=== PATIENT | male | born 2000 | race Caucasian/White ===

== ENCOUNTER 2024-09-27 03:30 | Observation (INO) ==
--- NOTE | 2024-09-27 03:48 | Emergency Department Note ---
History of Present Illness General Chief complaint: Abdominal Pain Stated complaint: ABD PAIN,FEVER,VOMITING,DIARRHEA,CONSTIPATION Time Seen by Provider: 09/27/24 03:35 History of Present Illness Maximum Pain Intensity: 8 This 24-year-old male presents ER with father for evaluation of nausea, vomiting, diarrhea with subjective fever and chills and abdominal pain for the past day. No bad food exposure. No recent travel. There is a family history of diverticulitis. Patient denies chest pain, dyspnea, blood or black in the stool or any other medical complaints. He states he works from home. Patient does a lot of physical fitness and most likely his CPK is related to this. Home Medications Medication Instructions Recorded Confirmed Type albuterol sulfate 90 mcg/actuation 2 inh inhalation Q4H PRN shortness 08/15/20 08/15/20 History aerosol inhaler of breath or wheezing cetirizine 10 mg tablet 10 mg PO DAILY 08/15/20 08/15/20 History fluticasone propionate 44 1 puff inhalation BID 08/15/20 08/15/20 History mcg/actuation HFA aerosol inhaler Allergies Allergy/AdvReac Type Severity Reaction Status Date / Time Penicillins Allergy Mild Unverified 09/14/09 03:17 Sulfa (Sulfonamide Allergy Mild Unverified 09/14/09 03:17 Antibiotics) [id number] Allergy Unknown Uncoded 01/20/03 07:45 Past Med/Surg History Problem List (Updated 09/27/24 @ 05:21 by Cherry Root PA-C) Acute appendicitis (Acute) Social History Smoking Status: Never smoker Feels Safe at Home: Yes Review of Systems A total of 10 systems reviewed and were otherwise negative Physical Exam Vital Signs Vital Signs - 24 hr 09/27/24 03:32 09/27/24 03:45 09/27/24 03:50 Pulse Rate 55 L 54 L Pulse Rate from SpO2 Sensor Respiratory Rate 20 16 Respiratory Effort / Characteristics Non-Labored Spontaneous Non-Labored Respiratory Depth Normal Normal Respiratory Pattern Regular Blood Pressure 157/93 H 150/74 H Blood Pressure Mean 114 88 Pulse Oximetry 98 98 Oxygen Delivery Method Room Air Sepsis Recent Fever Within 48 Hours Yes Sepsis New/Unexplained Change in Mental Status No Sepsis Action Taken by Nursing No Action Required 09/27/24 03:53 09/27/24 03:53 09/27/24 04:22 Pulse Rate 60 Pulse Rate from SpO2 Sensor Respiratory Rate Respiratory Effort / Characteristics Respiratory Depth Respiratory Pattern Blood Pressure 137/67 Blood Pressure Mean 75 Pulse Oximetry 99 Oxygen Delivery Method Room Air Sepsis Recent Fever Within 48 Hours Sepsis New/Unexplained Change in Mental Status Sepsis Action Taken by Nursing 09/27/24 04:27 09/27/24 04:45 09/27/24 04:51 Pulse Rate 43 L 49 L 54 L Pulse Rate from SpO2 Sensor 53 L 54 L 61 Respiratory Rate 21 15 12 Respiratory Effort / Characteristics Respiratory Depth Respiratory Pattern Blood Pressure Blood Pressure Mean Pulse Oximetry 100 100 100 Oxygen Delivery Method Sepsis Recent Fever Within 48 Hours Sepsis New/Unexplained Change in Mental Status Sepsis Action Taken by Nursing 09/27/24 04:57 09/27/24 05:33 09/27/24 05:36 Pulse Rate 58 L 79 Pulse Rate from SpO2 Sensor 59 L 81 Respiratory Rate 18 17 Respiratory Effort / Characteristics Respiratory Depth Respiratory Pattern Blood Pressure 155/103 H Blood Pressure Mean 112 Pulse Oximetry 90 100 Oxygen Delivery Method Sepsis Recent Fever Within 48 Hours Sepsis New/Unexplained Change in Mental Status Sepsis Action Taken by Nursing VITALS: Vitals are noted on the nurse's note and reviewed by myself. Vital signs stable. GENERAL: Pleasant male, in no acute distress, nondiaphoretic, well-developed well-nourished. SKIN: Capillary reflex less than 2 seconds. HEENT: Normocephalic. PERRLA. EOMI. Nares patent. Mucous membranes moist. Neck is supple without nuchal rigidity. HEART: Regular rate and rhythm LUNGS: Clear to auscultation bilaterally without wheezes, rales or rhonchi. No retractions or accessory muscle use. ABDOMEN: Positive bowel sounds x 4. Normal tympanic percussion. Soft, diffuse tenderness, without masses or organomegaly. Ling sign negative. No guarding or rebound tenderness. no CVA tenderness MUSCULOSKELETAL: No gross musculoskeletal defects. NEURO: Patient was alert and oriented to person place and time. No focal neurological deficits. Course Administered Medications Cefoxitin Sodium (Mefoxin) 2,000 mg in 60 mls @ 100 mls/hr IV NOW STA Stop: 09/27/24 05:55 Last Admin: 09/27/24 05:32 Dose: 100 mls/hr Documented By: FREDERIC Discontinued Medications Dicyclomine HCl (Dicyclomine Hcl 10 Mg/Ml 2 Ml Amp/Vial) 20 mg IM NOW ONE Stop: 09/27/24 03:45 Last Admin: 09/27/24 03:54 Dose: 20 mg Documented By: FREDERIC Sodium Chloride (Nss) 1,000 mls @ 999 mls/hr IV .Q1H1M ONE Stop: 09/27/24 04:44 Last Infusion: 09/27/24 04:54 Dose: Infused Documented By: Admin: 09/27/24 03:50 Dose: 999 mls/hr Documented By: FREDERIC Famotidine (Pepcid 20mg Iv Push) 20 mg in 5 mls @ 2.5 mls/min IV NOW STA Stop: 09/27/24 03:45 Last Admin: 09/27/24 03:54 Dose: 2.5 mls/min Documented By: FREDERIC Sodium Chloride (Nss) 1,000 mls @ 999 mls/hr IV .Q1H1M ONE Stop: 09/27/24 05:21 Last Admin: 09/27/24 04:25 Dose: 999 mls/hr Documented By: FREDERIC Acetaminophen (Ofirmev) 1,000 mg in 100 mls @ 400 mls/hr IV NOW STA Stop: 09/27/24 04:41 Last Infusion: 09/27/24 04:53 Dose: Infused Documented By: Admin: 09/27/24 04:30 Dose: 400 mls/hr Documented By: FREDERIC Ioversol (Optiray 320 100ml) 100 ml IV ONCE ONE Stop: 09/27/24 04:21 Last Admin: 09/27/24 04:20 Dose: 93 ml Documented By: JACQUELINE Morphine Sulfate (Morphine Sulfate 4 Mg/Ml 1 Ml Carp\Vial) 4 mg IV NOW STA Stop: 09/27/24 05:04 Last Admin: 09/27/24 05:07 Dose: 4 mg Documented By: FREDERIC Ondansetron HCl (Ondansetron Inj 2 Mg/Ml 2 Ml Vial) 4 mg IV NOW STA Stop: 09/27/24 03:45 Last Admin: 09/27/24 03:54 Dose: 4 mg Documented By: FREDERIC Ondansetron HCl (Ondansetron Inj 2 Mg/Ml 2 Ml Vial) 4 mg IV NOW STA Stop: 09/27/24 05:04 Last Admin: 09/27/24 05:07 Dose: 4 mg Documented By: FREDERIC Medical Decision Making Medical Records Attestation: I reviewed the patient's medical records. Home Medications Current Medication List: was personally reviewed by me Laboratory Data Attestation: I reviewed the patient's lab results. 09/27/24 03:43 09/27/24 03:43 Lab Results 09/27/24 09/27/24 09/27/24 Range/Units 03:43 03:43 05:04 WBC 11.02 H (4.8-10.8) K/ul RBC 5.30 (4.70-6.10) M/uL Hgb 15.7 (14.0-18.0) g/dl Hct 45.1 (42.0-52.0) % MCV 85.1 (80.0-100.0) fL MCH 29.6 (25.0-34.0) pg MCHC 34.8 (32.0-36.0) g/dL RDW Std Deviation 35.2 L (36.4-46.3) fL RDW Coeff of Camilo 11.5 (11.5-14.5) % Plt Count 255 (130-400) K/uL MPV 8.8 L (9.4-12.4) fL Immature Gran % (Auto) 0.3 % Neut % (Auto) 61.5 % Lymph % (Auto) 29.0 % [place] % (Auto) 7.2 % Eos % (Auto) 1.5 % Baso % (Auto) 0.5 % Neut # (Auto) 6.77 H (1.40-6.50) K/uL Lymph # (Auto) 3.20 (1.20-3.40) K/uL [place] # (Auto) 0.79 H (0.11-0.59) K/uL Eos # (Auto) 0.17 (0.00-0.50) K/uL Baso # (Auto) 0.06 (0.00-0.20) K/uL Immature Gran # (Auto) 0.03 (0.01-0.20) K/uL Sodium 136 (136-145) mmol/L Potassium 3.8 (3.5-5.1) mmol/L Chloride 101 (98-107) mmol/L Carbon Dioxide 25 (21-32) mmol/L Anion Gap 10 (3-11) BUN 29 H (6-23) mg/dl Creatinine 1.18 (0.6-1.4) mg/dl Est Cr Clr Drug Dosing 105.1 ml/min eGFR 88.37 BUN/Creatinine Ratio 24.6 H (10-20) Glucose 107 H (70-99(Fasting)) mg/dl Calcium 9.9 (8.6-10.3) mg/dl Total Bilirubin 0.5 (0.2-1.0) mg/dl AST 56 H (13-39) U/L ALT 41 (7-52) U/L Alkaline Phosphatase 79 (34-104) U/L Total Creatine Kinase 929 H Cancelled 793 H (30-223) U/L Total Protein 7.7 (6.0-8.3) gm/dl Albumin 4.7 (3.4-5.0) gm/dl Globulin 3.0 (2.5-4.0) gm/dl Albumin/Globulin Ratio 1.6 (0.9-2) Lipase 54 (11-82) U/L Adenovirus (PCR) Not Detected (NotDetected) B. pertussis DNA (PCR) Not Detected (NotDetected) B.parapertussis DNA PCR Not Detected (NotDetected) C. pneumoniae DNA (PCR) Not Detected (NotDetected) Coronavirus OC43 (PCR) Not Detected (NotDetected) Coronavirus HKU1 (PCR) Not Detected (NotDetected) Coronavirus 229E (PCR) Not Detected (NotDetected) SARS-CoV-2 (PCR) Not Detected (NotDetected) Coronavirus NL63 (PCR) Not Detected (NotDetected) Human Metapneumovir PCR Not Detected (NotDetected) Influenza Type A (PCR) Not Detected (NotDetected) Influenza Type B (PCR) Not Detected (NotDetected) M. pneumoniae (PCR) Not Detected (NotDetected) Parainfluenza 1 (PCR) Not Detected (NotDetected) Parainfluenza 2 (PCR) Not Detected (NotDetected) Parainfluenza 3 (PCR) Not Detected (NotDetected) Parainfluenza 4 (PCR) Not Detected (NotDetected) RSV (PCR) Not Detected (NotDetected) Entero/Rhino (PCR) Not Detected (NotDetected) Imaging Data Attestation: I personally reviewed and interpreted this imaging study as follows: Radiologist's Impression: Abdomen/Pelvis CT 09/27/24 03:44 EXAM: CT abd pelvis IV con only CLINICAL HISTORY: severe abd pain TECHNIQUE: Contrast-enhanced CT of the abdomen and pelvis was performed (93 ML OPTIRAY 320), with the following protocol: axial images with, and reconstructed coronal and sagittal images. 93 ML OPTIRAY 320 Intravenous contrast was administered. One of the following dose reduction techniques was utilized for this exam: Automated exposure control, adjustment of the mA and/or kV according to patient size, and use of iterative reconstruction. COMPARISON: None. FINDINGS: Abdomen: Liver: Enlarged in size (LS=21cm). No focal lesions, cysts, or masses were identified. Hepatic vasculature and biliary ducts are unremarkable. Gallbladder and Biliary System: The gallbladder is normal in size and shape. No wall thickening, pericholecystic fluid, or gallstones were identified. The common bile duct is normal in caliber without dilation. Pancreas: Pancreatic head, body, and tail are visualized and appear normal in size and density. No pancreatic masses or calcifications were noted. The pancreatic duct is not dilated. Spleen: Normal in size, shape, and density. No splenic lesions or masses were identified. Appendix: The appendix is distended (14mm in TS) with 4mm appendicolith, wall thickening, surrounding fat stranding seen normal in size without grace appendiceal fat stranding, and without an appendicolith. No evidence of appendiceal abscess or perforation. Kidneys and Adrenal Glands: Both kidneys are normal in size, shape, and position. Cortical thickness is within normal limits. No renal calculi or hydronephrosis. Adrenal glands are unremarkable with no evidence of masses or hyperplasia. Pelvis: Urinary Bladder: Normal in contour and wall thickness. No intraluminal lesions identified. Prostate: Normal in size and contour. No focal lesions or masses identified. Seminal Vesicles: Normal in size and appearance. No abnormalities noted. Rectum and Sigmoid Colon: Normal wall thickness and no evidence of mass. Peritoneal and Retroperitoneal Structures: No free fluid or abnormal fluid collections were identified within the abdomen or pelvis. No lymphadenopathy was noted. Bowel: The visualized bowel loops are normal in caliber and appearance. No evidence of bowel obstruction or wall thickening. Bones and Soft Tissues: Pelvic bones and soft tissues are unremarkable. No fractures or abnormal masses were identified. Cuts taken through base of the lung show right lower lobe mosaic attenuation and right lower lobe thickened reticulations IMPRESSION: 1. Imaging features suggesting acute appendicitis seen as a distended appendix, appendiceal wall thickening, appendicolith and surrounding fat stranding, advised for clinical correlation 2. Hepatomegaly 3. Cuts taken through base of the lung show right lower lobe mosaic attenuation (could be due to small airway disease) and right lower lobe thickened reticulations Electronically signed by Christine Taylor 09-27-2024 05:18 AM [facility] Narrative Prior records/ancillary studies reviewed. Triage Nursing notes reviewed. Additional history obtained from the family. The patient's history was concerning for nausea, vomiting, diarrhea, and abdominal pain. Differential diagnosis: Etiologies such as gastroenteritis, food borne illness, infections, appendicitis, diverticulitis, inflammatory bowel disease, obstruction, GI bleed, biliary pathology, as well as others were entertained. Physical examination findings: As above. Abdominal examination revealed tenderness. Vital signs reviewed and revealed stable. ER treatment provided: IV hydration 2 L NSS. Zofran, Bentyl, Pepcid were ordered Mefoxin for appendicitis Pain persisted and patient was given morphine and Zofran On reassessment the patient felt better. Patient was tolerating p.o. intake. Diagnostics interpretation by me: The labs Independently Interpreted by myself revealed mild leukocytosis, most likely marginalization from vomiting, glucose 107. CPK was elevated most likely from weightlifting and repeat was ordered and repeat was lower Imaging studies: Imaging was reviewed and read by radiology Consultation: A consultation was placed with surgery. The case was discussed and diagnostics were reviewed. The patient was evaluated in the ER for further treatment. This appears to be consistent with acute appendicitis. Patient was started on Mefoxin. He was placed NPO. Surgery was consulted. Patient is agreeable. Patient was admitted to the surgical service. By the evaluation outlined above emergent etiologies such as diverticulitis, obstruction, cardiac sources, mesenteric ischemia, aortic pathology, inflammatory bowel disease, renal colic, PUD, biliary pathology, UTI, as well as others were deemed relatively unlikely. The pt informed about the findings as listed above. All questions were answered and pleased with the treatment. The chart was completed utilizing [employer] voice recognition software. Grammatical errors, random word insertions, pronoun errors, and incomplete sentences are an occassional consequence of this system due to software limitations, ambient noise, and hardware issues. Any formal questions or concerns about the content, text, or information contained within the body of this dictation should be directly addressed to the physician assistant basketball coach for clarification. Impression & Plan Acute appendicitis Discharge Plan Visit Data Chief Complaint: Abdominal Pain Stated Complaint: ABD PAIN,FEVER,VOMITING,DIARRHEA,CONSTIPATION ED Provider: Tova Phelan ED Midlevel Provider: Cherry Root Discharge Problem: Acute appendicitis Patient Disposition: Being Evaluated by Surgeon Condition: Good Forms Stand Alone Forms: [facility] Prescriptions Prescriptions: No Action cetirizine 10 mg tablet 10 mg PO DAILY Flovent HFA 44 mcg/actuation HFA aerosol inhaler 1 puff inhalation BID albuterol sulfate 90 mcg/actuation HFA aerosol inhaler 2 inh inhalation Q4H PRN (Reason: shortness of breath or wheezing) Referrals Referrals: Vinicius Silva MD [Physician] - Discharge Problem: Acute appendicitis Qualifiers: Acute appendicitis type: with generalized peritonitis Appendicitis gangrene presence: unspecified whether gangrene present Appendicitis perforation presence: unspecified whether perforation present Appendicitis abscess presence: unspecified whether abscess present Qualified Code(s): K35.209 - Acute appendicitis with generalized peritonitis, without abscess, unspecified as to perforation
[2024-09-27] MEDS: SODIUM CHLORIDE 0.9% 1,000 ML IV ONE ×2 (03:50→04:25)
[2024-09-27 03:53] LABS: Basophils # (auto) 0.06 K/uL (0.00-0.20); Basophils % (auto) 0.5 %; Eosinophils # (auto) 0.17 K/uL (0.00-0.50); Eosinophils % (auto) 1.5 %; Hematocrit (blood only) 45.1 % (42.0-52.0); Hemoglobin 15.7 g/dl (14.0-18.0); Immature Granulocytes # (auto) 0.03 K/uL (0.01-0.20); Immature Granulocytes % (auto) 0.3 %; Mean Corpuscular Hemoglobin 29.6 pg (25.0-34.0); Mean Corpuscular Hgb Conc 34.8 g/dL (32.0-36.0); Mean Corpuscular Volume 85.1 fL (80.0-100.0); Mean Platelet Volume 8.8 fL (9.4-12.4); Monocytes # (auto) 0.79 K/uL (0.11-0.59); Monocytes % (auto) 7.2 %; Neutrophils # (auto) 6.77 K/uL (1.40-6.50); Neutrophils % (auto) 61.5 %; Platelet Count 255 K/uL (130-400); RDW Coefficient of Variation 11.5 % (11.5-14.5); RDW Standard Deviation 35.2 fL (36.4-46.3); White Blood Count 11.02 K/ul (4.8-10.8)
[2024-09-27] MEDS: ONDANSETRON INJ 2 MG/ML 2 ML VIAL IV STA ×2 (03:54→05:07)
[2024-09-27] MEDS: FAMOTIDINE 20MG IV PUSH 20 MG/5 ML SYR IV STA (03:54)
[2024-09-27] MEDS: DICYCLOMINE HCL 10 MG/ML 2 ML AMP/VIAL IM ONE (03:54)
[2024-09-27 04:19] LABS: Albumin Globulin Ratio 1.6 (0.9-2); Albumin Level 4.7 gm/dl (3.4-5.0); BUN Creatinine Ratio 24.6 (10-20); Bilirubin,Total 0.5 mg/dl (0.2-1.0); Calcium 9.9 mg/dl (8.6-10.3); Creatinine Clr Calc Pharmacy 105.1 ml/min; Potassium 3.8 mmol/L (3.5-5.1); Total Protein 7.7 gm/dl (6.0-8.3)
[2024-09-27] MEDS: OPTIRAY 320 100ml IV ONE (04:20)
[2024-09-27] MEDS: ACETAMINOPHEN 1,000 MG/100 ML VIAL IV STA (04:30)
[2024-09-27 04:57] LABS: Adenovirus PCR Not Detected (NotDetected); Bordetella parapertussis PCR Not Detected (NotDetected); Bordetella pertussis PCR Not Detected (NotDetected); Chlamydia pneumoniae PCR Not Detected (NotDetected); Coronavirus 229E PCR Not Detected (NotDetected); Coronavirus CoV-2 (COVID19)PCR Not Detected (NotDetected); Coronavirus HKU1 PCR Not Detected (NotDetected); Coronavirus NL63 PCR Not Detected (NotDetected); Coronavirus OC43PCR Not Detected (NotDetected); Human Metapneumovirus PCR Not Detected (NotDetected); Influenza A PCR Not Detected (NotDetected); Influenza B PCR Not Detected (NotDetected); Mycoplasma pneumoniae PCR Not Detected (NotDetected); Parainfluenza Virus 1 PCR Not Detected (NotDetected); Parainfluenza Virus 2 PCR Not Detected (NotDetected); Parainfluenza Virus 3 PCR Not Detected (NotDetected); Parainfluenza Virus 4 PCR Not Detected (NotDetected); Respiratory Syncytial VirusPCR Not Detected (NotDetected); Rhinovirus/Enterovirus PCR Not Detected (NotDetected)
[2024-09-27] MEDS: MoRPHine SULFATE 4 MG/ML 1 ML CARP\\VIAL IV STA (05:07)
--- NOTE | 2024-09-27 05:18 | CT Scan Report ---
EXAM: CT abd pelvis IV con only CLINICAL HISTORY: severe abd pain TECHNIQUE: Contrast-enhanced CT of the abdomen and pelvis was performed (93 ML OPTIRAY 320), with the following protocol: axial images with, and reconstructed coronal and sagittal images. 93 ML OPTIRAY 320 Intravenous contrast was administered. One of the following dose reduction techniques was utilized for this exam: Automated exposure control, adjustment of the mA and/or kV according to patient size, and use of iterative reconstruction. COMPARISON: None. FINDINGS: Abdomen: Liver: Enlarged in size (LS=21cm). No focal lesions, cysts, or masses were identified. Hepatic vasculature and biliary ducts are unremarkable. Gallbladder and Biliary System: The gallbladder is normal in size and shape. No wall thickening, pericholecystic fluid, or gallstones were identified. The common bile duct is normal in caliber without dilation. Pancreas: Pancreatic head, body, and tail are visualized and appear normal in size and density. No pancreatic masses or calcifications were noted. The pancreatic duct is not dilated. Spleen: Normal in size, shape, and density. No splenic lesions or masses were identified. Appendix: The appendix is distended (14mm in TS) with 4mm appendicolith, wall thickening, surrounding fat stranding seen normal in size without grace appendiceal fat stranding, and without an appendicolith. No evidence of appendiceal abscess or perforation. Kidneys and Adrenal Glands: Both kidneys are normal in size, shape, and position. Cortical thickness is within normal limits. No renal calculi or hydronephrosis. Adrenal glands are unremarkable with no evidence of masses or hyperplasia. Pelvis: Urinary Bladder: Normal in contour and wall thickness. No intraluminal lesions identified. Prostate: Normal in size and contour. No focal lesions or masses identified. Seminal Vesicles: Normal in size and appearance. No abnormalities noted. Rectum and Sigmoid Colon: Normal wall thickness and no evidence of mass. Peritoneal and Retroperitoneal Structures: No free fluid or abnormal fluid collections were identified within the abdomen or pelvis. No lymphadenopathy was noted. Bowel: The visualized bowel loops are normal in caliber and appearance. No evidence of bowel obstruction or wall thickening. Bones and Soft Tissues: Pelvic bones and soft tissues are unremarkable. No fractures or abnormal masses were identified. Cuts taken through base of the lung show right lower lobe mosaic attenuation and right lower lobe thickened reticulations IMPRESSION: 1. Imaging features suggesting acute appendicitis seen as a distended appendix, appendiceal wall thickening, appendicolith and surrounding fat stranding, advised for clinical correlation 2. Hepatomegaly 3. Cuts taken through base of the lung show right lower lobe mosaic attenuation (could be due to small airway disease) and right lower lobe thickened reticulations Electronically signed by Christine Taylor 09-27-2024 05:18 AM
[2024-09-27] MEDS: cefOXitin 2,000 MG/60 ML BAG IV STA (05:32)
[2024-09-27] MEDS ORDERED: ONDANSETRON INJ 2 MG/ML 2 ML VIAL IV PRN (05:46)
[2024-09-27] MEDS: MoRPHine SULFATE 4 MG/ML 1 ML CARP\\VIAL IV PRN (06:09)
[2024-09-27] MEDS: SODIUM CHLORIDE 0.9% 1,000 ML IV SCH (06:10)
--- NOTE | 2024-09-27 06:15 | History & Physical Report ---
Date of Service September 27, 2024 Assessment & Plan (1) Acute appendicitis: Plan: Patient is a 24-year-old male who presented to the emergency department early this morning with abdominal pain, nausea and vomiting. The patient was ultimately worked up and WBC was [address] imaging with findings of distended appendix of 14mm with 4mm appendicolith. The patient also had an elevated CPK however tells me that he is very into fitness and lifting weights. On exam the patient is tender in his lower abdomen and in the RLQ, he otherwise has stable vitals, and no signs of peritonitis. The patient received pain medication and IV antibiotics with cefoxitin in the ED. The patient will be admitted under observation to the surgical service. Will keep NPO, IV maintenance fluids, and will continue IV antibiotics. Pain control with IV Tylenol and Morphine as needed. Patient will tentatively undergo surgical intervention later today. History of Present Illness Chief Complaint: Abdominal pain, nausea, vomiting Primary Care Provider: NO PCP The patient is a 24-year-old male who presented to the emergency department ea rly this morning with complaints of abdominal pain, nausea, and vomiting for the last day. The patient states that over the past week he has felt somewhat unwell, however thought it was just a "stomach bug". The patient states that his abdominal pain started roughly in his mid abdomen region however over the last 24 hours the pain has been more across his lower abdomen. He did have diarrhea yesterday but states that has since subsided. The patient did attempt to eat last evening around 10PM however shortly after he had an episode of vomiting. The patient also admits to subjective fevers and chills as well. He was worked up in the ED and CT imaging was concerning for acute appendicitis and the surgical team was consulted for further evaluation. The patient was seen and evaluated this morning at bedside. He is resting comfortably in bed, VSS, and is in no acute distress. On exam the patient is tender across his lower abdominal region and does elicit more tenderness in the RLQ compared to the LLQ. The patient states he is otherwise healthy and does do a lot of physical fitness. He denies any previous abdominal surgeries in the past. Allergies Allergy/AdvReac Type Severity Reaction Status Date / Time Penicillins Allergy Mild Rash Verified 09/27/24 09:56 Sulfa (Sulfonamide Allergy Mild Unknown Verified 09/27/24 09:56 Antibiotics) Home Medications Medication Instructions Recorded Confirmed Type albuterol sulfate 90 mcg/actuation 2 inh inhalation Q4H PRN shortness 08/15/20 08/15/20 History aerosol inhaler of breath or wheezing cetirizine 10 mg tablet 10 mg PO DAILY 08/15/20 08/15/20 History fluticasone propionate 44 1 puff inhalation BID 08/15/20 08/15/20 History mcg/actuation HFA aerosol inhaler oxycodone 5 mg tablet 5 - 10 mg (1 - 2 x 5 mg) PO 09/27/24 Rx .[id number] PRN pain #15 tabs Past Med/Surg History Problem List (Updated 09/27/24 @ 09:52 by Misha Wilson MD) Encounter for pre-operative examination Acute appendicitis (Acute) Medical History (Updated 09/27/24 @ 09:52 by Misha Wilson MD) No pertinent past medical history Surgical History (Updated 09/27/24 @ 09:52 by Misha Wilson MD) No pertinent past surgical history Social History Smoking Status: Never smoker Hx Alcohol Use: No Hx Substance Use: No Preferred Language: Spanish Communication Ability: Effective Form Coverer Required: No Beliefs That Will Affect Care: None Current Living Situation: Family Feels Safe at Home: Yes Review of Systems Constitutional: + fever, + chills and + sweats; no weakn ess and no weight loss Respiratory: no cough, no chest congestion, no dyspnea and no problem reported Cardiovascular: no chest pain with activity, no palpitations, no syncope and no problem reported Gastrointestinal: + abdominal pain, + nausea, + vomiting a nd + diarrhea/loose stools Genitourinary: no dysuria, no urinary frequency, no urinary hesitancy or no flank pain Physical Exam Constitutional: WD/WN, vitals as above Respiratory: normal respiratory effort, lungs clear to auscultation Cardiovascular: RRR, no murmur, no edema Gastrointestinal (Abdomen): Abdomen soft, nondistended, +TTP over periumbilical region and RLQ. No signs of peritonitis Skin: no rashes, warm and dry Psychiatric: A+Ox3, euthymic affect Results & Data Results & Data Vital Signs (Past 12 Hours) Vital Signs Pulse Resp BP Pulse Ox O2 Del Method 09/27/24 05:42 65 21 155/103 H 100 09/27/24 05:36 79 17 100 09/27/24 05:33 155/103 H 09/27/24 04:57 58 L 18 90 09/27/24 04:51 54 L 12 100 09/27/24 04:45 49 L 15 100 09/27/24 04:27 43 L 21 100 09/27/24 04:22 137/67 09/27/24 03:53 60 09/27/24 03:53 99 Room Air 09/27/24 03:50 54 L 16 150/74 H 98 09/27/24 03:32 55 L 20 157/93 H 98 Room Air Diagnostic Findings EXAM: CT abd pelvis IV con only ADDENDUM: The report was faxed at [phone] at 4:30 AM HAND MOLDER, 09/27/2024. Electronically signed by Christine Taylor 09-27-2024 05:38 AM ADDENDUM END EXAM: CT abd pelvis IV con only CLINICAL HISTORY: severe abd pain TECHNIQUE: Contrast-enhanced CT of the abdomen and pelvis was performed (93 ML OPTIRAY 320), with the following protocol: axial images with, and reconstructed coronal and sagittal images. 93 ML OPTIRAY 320 Intravenous contrast was administered. One of the following dose reduction techniques was utilized for this exam: Automated exposure control, adjustment of the mA and/or kV according to patient size, and use of iterative reconstruction. COMPARISON: None. FINDINGS: Abdomen: Liver: Enlarged in size (LS=21cm). No focal lesions, cysts, or masses were identified. Hepatic vasculature and biliary ducts are unremarkable. Gallbladder and Biliary System: The gallbladder is normal in size and shape. No wall thickening, pericholecystic fluid, or gallstones were identified. The common bile duct is normal in caliber without dilation. Pancreas: Pancreatic head, body, and tail are visualized and appear normal in size and density. No pancreatic masses or calcifications were noted. The pancreatic duct is not dilated. Spleen: Normal in size, shape, and density. No splenic lesions or masses were identified. Appendix: The appendix is distended (14mm in TS) with 4mm appendicolith, wall thickening, surrounding fat stranding seen normal in size without grace appendiceal fat stranding, and without an appendicolith. No evidence of appendiceal abscess or perforation. Kidneys and Adrenal Glands: Both kidneys are normal in size, shape, and position. Cortical thickness is within normal limits. No renal calculi or hydronephrosis. Adrenal glands are unremarkable with no evidence of masses or hyperplasia. Pelvis: Urinary Bladder: Normal in contour and wall thickness. No intraluminal lesions identified. Prostate: Normal in size and contour. No focal lesions or masses identified. Seminal Vesicles: Normal in size and appearance. No abnormalities noted. Rectum and Sigmoid Colon: Normal wall thickness and no evidence of mass. Peritoneal and Retroperitoneal Structures: No free fluid or abnormal fluid collections were identified within the abdomen or pelvis. No lymphadenopathy was noted. Bowel: The visualized bowel loops are normal in caliber and appearance. No evidence of bowel obstruction or wall thickening. Bones and Soft Tissues: Pelvic bones and soft tissues are unremarkable. No fractures or abnormal masses were identified. Cuts taken through base of the lung show right lower lobe mosaic attenuation and right lower lobe thickened reticulations IMPRESSION: 1. Imaging features suggesting acute appendicitis seen as a distended appendix, appendiceal wall thickening, appendicolith and surrounding fat stranding, advised for clinical correlation 2. Hepatomegaly 3. Cuts taken through base of the lung show right lower lobe mosaic attenuation (could be due to small airway disease) and right lower lobe thickened reticulations Code Status & VTE Plan VTE Prophylaxis Plan VTE Prophylaxis will be ordered: Yes Supervising Physician Co-Signing Physician Notes I have seen and examined this patient this am. I have also reviewed his imaging. Laparoscopic appendectomy planned for this am. I have explained the details of the surgery to him including the risks and benefits. He expressed understanding of this explanation and all of his questions were answered. Consent has been obtained. PG Care Time/CCT Total # of Minutes Spent Total Time Spent with Patient: Total time spent is greater than 50% in coordination of care (as documented) at patient's floor/unit and/or counseling patient: [place] [address] INT INP/OBS CARE 40MIN Patient Type New Medical Decision Making Straight Forward Diagnoses Acute appendicitis K35.209 Acute appendicitis type: with generalized peritonitis Appendicitis abscess presence: unspecified whether abscess present Appendicitis gangrene presence: unspecified whether gangrene present Appendicitis perforation presence: unspecified whether perforation present (1) Acute appendicitis Acute appendicitis type: with generalized peritonitis Appendicitis abscess presence: unspecified whether abscess present Appendicitis gangrene presence: unspecified whether gangrene present Appendicitis perforation presence: unspecified whether perforation present Qualified Code(s): K35.209 - Acute appendicitis with generalized peritonitis, without abscess, unspecified as to perforation
[2024-09-27 08:01] LABS: Appearance Urine Clear (Clear); Bacteria Urine Automated None Seen (None Seen); Bilirubin Urine Negative (Negative); Blood Urine Negative (Negative); Cast Urine Automated 0-2 /lpf (0-2); Color Urine Yellow; Epithelial Cell Urine Auto 0-2 /hpf (0-2); Glucose Urine UA Negative (Negative); Ketones Urine 1+ (Negative); Leukocyte Esterase Urine Negative (Negative); Nitrite Urine Negative (Negative); Protein Urine Trace (Negative); RBC Urine Automated 0-2 /hpf (0-2); Specific Gravity Urine > 1.045 (1.000-1.030); Urobilinogen Urine Negative (Negative); WBC Urine Automated 0-5 /hpf (0-5)
[2024-09-27] MEDS: MoRPHine SULFATE 2 MG/ML CARP IV PRN (08:02)
[2024-09-27] MEDS: ACETAMINOPHEN 1,000 MG/100 ML VIAL IV PRN (08:46)
[2024-09-27] MEDS ORDERED: DEXAMETHASONE SOD INJ 4 MG/ML VIAL ONE (09:26)
[2024-09-27] MEDS ORDERED: MIDAZOLAM HCL 1 MG/ML 2ML VIAL ONE (09:26)
[2024-09-27] MEDS ORDERED: fentaNYL citrate PF 100 MCG/2 ML VIAL ONE (09:26)
[2024-09-27] MEDS ORDERED: PROPOFOL IV EMULSION 10 MG/ML 20 ML VIAL IV ONE ×2 (09:26→10:32)
[2024-09-27] MEDS ORDERED: LIDOCAINE 2% 2 ML VIAL/AMP(20MG/ML) INFIL ONE (09:26)
[2024-09-27] MEDS ORDERED: ROCURONIUM BROMIDE 10 MG/ML 5 ML VIAL IV ONE (09:26)
[2024-09-27] MEDS ORDERED: SODIUM CHLORIDE 0.9% PF INJ 10 ML VIAL ONE (09:27)
[2024-09-27] MEDS ORDERED: DexMEDEtomidine HCL IV 100 MCG/ML VIAL IV ONE (09:27)
[2024-09-27] MEDS ORDERED: SUCCINYLCHOLINE CHLORIDE 20 MG/ML 10 ML VIAL IV ONE (09:30)
--- NOTE | 2024-09-27 09:53 | Anesthesiology Consultation ---
Date of Service September 27, 2024 Assessment & Plan (1) Encounter for pre-operative examination: Chart Review Chart Review: Acceptable Risk for Surgery History Surgery Operation Date: 09/27/24 07:00 Proposed Procedures p Laparoscopic Appendectomy - Sandoval Alvarez DO Height/Weight Height: 5 ft 8 in Weight: 90.5 kg Allergies Allergy/AdvReac Type Severity Reaction Status Date / Time Penicillins Allergy Mild Unknown Unverified 09/27/24 05:54 Sulfa (Sulfonamide Allergy Mild Unknown Unverified 09/27/24 05:54 Antibiotics) Medications Home Medications Medication Instructions Recorded Confirmed Last Taken albuterol sulfate 90 mcg/actuation 2 inh inhalation Q4H PRN shortness 08/15/20 08/15/20 Unknown aerosol inhaler of breath or wheezing cetirizine 10 mg tablet 10 mg PO DAILY 08/15/20 08/15/20 Unknown fluticasone propionate 44 1 puff inhalation BID 08/15/20 08/15/20 Unknown mcg/actuation HFA aerosol inhaler oxycodone 5 mg tablet 5 - 10 mg (1 - 2 x 5 mg) PO 09/27/24 Unknown .[id number] PRN pain #15 tabs Active Medications Generic Name Dose Route Start Last Admin Trade Name Freq PRN Reason Stop Dose Admin Sodium Chloride 1,000 mls @ 125 mls/hr 09/27/24 05:45 09/27/24 06:10 Nss IV 09/28/24 05:44 125 mls/hr .Q8H DIMAS Administration Acetaminophen 1,000 mg in 100 mls @ 400 mls/hr 09/27/24 05:46 09/27/24 09:01 Ofirmev IV 09/30/24 05:45 Infused Q8H PRN Infusion Pain Morphine Sulfate 2 mg 09/27/24 05:46 09/27/24 08:02 Morphine Sulfate 2 Mg/Ml Carp IV 10/11/24 05:45 2 mg Q3H PRN Administration Pain (1,2,3,4,5) & Pre PT Morphine Sulfate 4 mg 09/27/24 05:46 09/27/24 06:09 Morphine Sulfate 4 Mg/Ml 1 Ml Carp\Vial IV 10/11/24 05:45 4 mg Q3H PRN Administration Pain (6,7,8,9,10) Past Medical History Medical History (Updated 09/27/24 @ 09:52 by Misha Wilson MD) No pertinent past medical history Past Surgical History Surgical History (Updated 09/27/24 @ 09:52 by Misha Wilson MD) No pertinent past surgical history Social History Smoking Status: Never smoker Hx Alcohol Use: No Hx Substance Use: No Physical Exam Vital Signs Last Vital Signs Temp 36.6 C 09/27/24 08:13 Pulse 56 L 09/27/24 08:13 Resp 16 09/27/24 08:13 BP 150/74 H 09/27/24 08:13 Pulse Ox 96 09/27/24 08:13 O2 Del Method Room Air 09/27/24 08:13 Testing Laboratory Results 09/27/24 03:43 09/27/24 03:43 Urine Color Yellow 09/27/24 07:46 Urine Appearance Clear (Clear) 09/27/24 07:46 Urine pH 8.0 (4.5-7.5) H 09/27/24 07:46 Ur Specific [place] > 1.045 (1.000-1.030) H 09/27/24 07:46 Urine Protein Trace (Negative) H 09/27/24 07:46 Urine Glucose (UA) Negative (Negative) 09/27/24 07:46 Urine Ketones 1+ (Negative) H 09/27/24 07:46 Urine Nitrite Negative (Negative) 09/27/24 07:46 Ur Leukocyte Esterase Negative (Negative) 09/27/24 07:46 Urine WBC (Auto) 0-5 /hpf (0-5) 09/27/24 07:46 Urine RBC (Auto) 0-2 /hpf (0-2) 09/27/24 07:46 U Hyaline Cast (Auto) 0-2 /lpf (0-2) 09/27/24 07:46 U Epithel Cells (Auto) 0-2 /hpf (0-2) 09/27/24 07:46 Urine Bacteria (Auto) None Seen (None Seen) 09/27/24 07:46
[2024-09-27] MEDS ORDERED: fentaNYL citrate PF 100 MCG/2 ML VIAL IV PRN (10:10)
[2024-09-27] MEDS ORDERED: PROMETHAZINE HCL 6.25 MG in SODIUM CHLORIDE 0.9% 50 ML IV PRN (10:10)
[2024-09-27] MEDS ORDERED: ATROPINE SULFATE 0.1 MG/ML 10ML SYR IV PRN (10:10)
[2024-09-27] MEDS ORDERED: KETOROLAC 30 MG/ML VIAL IV PRN (10:10)
[2024-09-27] MEDS: cefOXitin 2,000 MG in DEXTROSE 5 % MINI-B 50 ML IV SCH (10:20)
[2024-09-27] MEDS ORDERED: diphenhydrAMINE 50 MG/ML VIAL ONE (10:35)
[2024-09-27] MEDS: BUPIVACAINE/EPINEPHRINE 0.5% MPF 1:200,000 30 ML VIAL ONE (11:09)
[2024-09-27] MEDS ORDERED: GLYCOPYRROLATE 0.2 MG/ML VIAL ONE ×2 (11:10→11:15)
[2024-09-27] MEDS ORDERED: NEOSTIGMINE METHYLSULFATE 1 MG/ML 10ML VIAL ONE (11:10)
[2024-09-27] MEDS ORDERED: KETOROLAC 30 MG/ML VIAL ONE (11:12)
--- NOTE | 2024-09-27 11:38 | Operative Report ---
PG Post Operative Report Pre & Post Diagnosis Operation Date: 09/27/24 07:00 Pre-Op Diagnosis: Acute appendicitis Post-Op Diagnosis: Acute appendicitis I identified the patient and participated in the time-out.: Yes Procedure Operation Date: 09/27/24 07:00 Actual Procedures p Laparoscopic Appendectomy - Sandoval Alvarez DO Surgeon Raul Hernandez DO Steel Sash Erector No surgical services assistant Estimated Blood Loss 1 Findings See Below Acute appendicitis without perforation or gangrene, appendix normal at the base Specimens Appendix Drains None Anesthesia Type General Complications None Indications Right lower quadrant pain, acute appendicitis on CT Description of Procedure The patient was brought back to the operating room and placed on the operating table in supine position. He was connected to cardiac and oxygen monitoring, supplemental attendance provide and SCDs were applied to bilateral lower extremities. The patient was administered general anesthesia and a secure airway was established. The abdomen was prepped and draped in typical sterile fashion and a timeout was conducted. Local anesthetic was used anesthetize skin and subcutaneous tissues prior to making all incisions and all incisions were made with an 11 blade. Bleeding at the incision sites was controlled using cautery. Intra-abdominal access was gained at the infraumbilical fold using a Veress needle. This is confirmed with a saline drop test. CO2 gas inflation was initiated and pneumoperitoneum was established with goal pressure 15 mmHg. A 5 mm trocar was inserted using direct visualization with a 5 mm laparoscope and Optiview port. Using direct visualization a 12 mm trocar was inserted the left lower quadrant and a 5 mm trocar at the suprapubic midline. A fair amount of physiologic fluid was noted in the pelvis and this was suctioned away. The OR table was positioned in Trendelenburg and left side down and the appendix was identified in a retrocecal position. The mid to tip of the appendix was thickened and with early infection. The mesoappendix containing the appendiceal artery was ligated and transected using a harmonic device. The dissection was carried to the base of the appendix which was completely normal. A purple loaded 45 mm Endo TIRSO was used to ligate and transect the appendix away from the base of the cecum. Access discharged [place] were removed from the abdomen. The staple line was well intact, healthy and not bleeding. There was no bleeding from the transected mesoappendix. The appendix was placed in an Endo Catch bag and removed from the abdomen via the left lower quadrant incision. The omentum was placed over the surgical site. Instruments were removed. The OR table was returned to neutral position. CO2 insufflation was discontinued and excess pneumoperitoneum was evacuated. The fascia at the left lower quadrant incision was closed using 0 Vicryl suture. Additional local anesthetic was injected into the skin and subcutaneous tissues at all incisions and the fascia of the left lower quadrant incision. The skin was closed using 4-0 Vicryl suture. The abdomen was wiped clean with saline soaked lap pad and dry. Dermabond was applied to the incisions. The patient tolerated procedure well. He was awakened from anesthesia, securely with some relief transferred to recovery in stable condition. I attest to the content of the Intraoperative Record and any orders documented therein. Any exceptions are noted below.
--- NOTE | 2024-09-27 12:22 | Anesthesiology Progress Note ---
Date of Service September 27, 2024 Anesthesia Post Procedure Vital Signs Vital Signs: Temp Pulse Pulse Pulse Resp BP BP 09/27/24 12:10 37.1 C 59 L 16 109/53 L 09/27/24 12:00 52 L 14 102/41 L 09/27/24 11:50 55 L 14 102/43 L 09/27/24 11:40 36.0 C L 61 14 90/54 L 09/27/24 09:56 36.8 C 65 20 145/74 H 09/27/24 08:13 36.6 C 56 L 16 150/74 H 09/27/24 07:58 36.9 C 66 20 142/79 H 09/27/24 07:49 36.9 C 65 20 142/76 H 09/27/24 06:18 73 19 09/27/24 06:00 60 18 09/27/24 06:00 168/87 H 09/27/24 05:57 65 21 09/27/24 05:47 09/27/24 05:42 65 21 155/103 H 09/27/24 05:36 79 17 09/27/24 05:33 155/103 H 09/27/24 04:57 58 L 18 09/27/24 04:51 54 L 12 09/27/24 04:45 49 L 15 09/27/24 04:27 43 L 21 09/27/24 04:22 137/67 09/27/24 03:53 60 09/27/24 03:53 09/27/24 03:50 54 L 16 150/74 H 09/27/24 03:32 55 L 20 157/93 H Pulse Ox O2 Del Method O2 Flow Rate 09/27/24 12:10 96 Room Air 09/27/24 12:00 97 Oxymask 6 09/27/24 11:50 96 Oxymask 8 09/27/24 11:40 96 Oxymask 8 09/27/24 09:56 100 Room Air 09/27/24 08:13 96 Room Air 09/27/24 07:58 97 Room Air 09/27/24 07:49 97 Room Air 09/27/24 06:18 98 09/27/24 06:00 99 09/27/24 06:00 09/27/24 05:57 99 09/27/24 05:47 Room Air 09/27/24 05:42 100 02/18/25 05:36 100 09/27/24 05:33 09/27/24 04:57 90 09/27/24 04:51 100 09/27/24 04:45 100 09/27/24 04:27 100 09/27/24 04:22 09/27/24 03:53 09/27/24 03:53 99 Room Air 09/27/24 03:50 98 09/27/24 03:32 98 Room Air Pain Intensity Lower Abdomen: Pain Intensity: 6 Transfer of Care Handoff Completed per policy Notes Mental Status: alert / awake / arousable Patient Amnestic to Procedure: Yes Nausea / Vomiting: adequately controlled Pain: adequately controlled Airway Patency, RR, SpO2: stable & adequate BP & HR: stable & adequate Hydration State: stable & adequate Anesthetic Complications: no major complications apparent
[2024-09-27] MEDS ORDERED: ACETAMINOPHEN 325 MG TAB PO PRN (12:29)
[2024-09-27] MEDS ORDERED: oxyCODONE HCL IR 5 MG TAB (IMMEDIATE RELEASE) PO PRN ×2 (12:29)
--- NOTE | 2024-09-27 13:25 | Discharge Summary ---
Date of Service September 27, 2024 Admission HPI Per Admitting Provider The patient is a 24-year-old male who presented to the emergency department early this morning with complaints of abdominal pain, nausea, and vomiting for the last day. The patient states that over the past week he has felt somewhat unwell, however thought it was just a "stomach bug". The patient states that his abdominal pain started roughly in his mid abdomen region however over the last 24 hours the pain has been more across his lower abdomen. He did have diarrhea yesterday but states that has since subsided. The patient did attempt to eat last evening around 10PM however shortly after he had an episode of vomiting. The patient also admits to subjective fevers and chills as well. He was worked up in the ED and CT imaging was concerning for acute appendicitis and the surgical team was consulted for further evaluation. The patient was seen and evaluated this morning at bedside. He is resting comfortably in bed, VSS, and is in no acute distress. On exam the patient is tender across his lower abdominal region and does elicit more tenderness in the RLQ compared to the LLQ. The patient states he is otherwise healthy and does do a lot of physical fitness. He denies any previous abdominal surgeries in the past. Principal Diagnosis acute appendicitis Discharge Exam Constitutional: WD/WN, vitals as above Respiratory: normal respiratory effort, lungs clear to auscultation Cardiovascular: RRR, no murmur, no edema Gastrointestinal (Abdomen): Abdomen soft, nondistended, +TTP over periumbilical region and RLQ. No signs of peritonitis Skin: no rashes, warm and dry Psychiatric: A+Ox3, euthymic affect Discharge Data Allergies Allergy/AdvReac Type Severity Reaction Status Date / Time Penicillins Allergy Mild Rash Verified 09/27/24 09:56 Sulfa (Sulfonamide Allergy Mild Unknown Verified 09/27/24 09:56 Antibiotics) Consultations 09/27/24 05:23 ED Decision to Admit Stat Procedures Performed Operation Date: 09/27/24 07:00 Actual Procedures p Laparoscopic Appendectomy - Sandoval Alvarez DO Ordered Studies 09/27/24 03:44 CT abd pelvis IV con only Stat Hospital Course (1) Acute appendicitis: This is a 24yo male who presented to the [facility] ED on 09/27/24 with abdominal pain. Workup in the ED showed a WBC of [address] a/p concerning for acute appendicitis (see HPI for full details). Patient made NPO with IVF and booked for the OR. On 09/27/24 the patient went to the OR with Dr Alvarez for a Laparoscopic Appendectomy. The patient tolerated the procedure well, see operative report for full details. Post operatively the patient's diet was ad vanced, pain managed on prn meds, and incisions clean/dry/intact. the patient was deemed stable for discharge to home later that afternoon. The patient was given discharge instructions, follow up recommendations, return precautions and a prescription for narcotic pain medication. Total Time Total Time Spent Total Time Spent (In Minutes): 10 Discharge Plan Discharge Items Patient Disposition: Home - Self-Care Reason For Visit: ABD PAIN,FEVER,VOMITING,DIARRHEA,CONSTIPATION Discharge Diagnosis: laparoscopic appendectomy , acute appendicitis Condition on Discharge: Good Activity: As commented below Lifting: No more than 10 pounds Bathing Comment: you can shower. No soaking in pool/bath/hot tubs for 2 weeks Exercise/Sports: Wait until after follow-up appointment Driving/Machine Use: no driving if taking narcotic pain medication Non-emergency contact: Surgeon Call non-emergency contact if: you have any medication questions, your symptoms worsen, your temperature is above 101.5, your wound has increased redness, your wound has increased drainage and your wound pain has increased Follow-up/Referrals: Sandoval Alvarez DO [Physician] - (call office for follow up in 1-2 weeks ) PCP,NO [Primary Care Provider] - Diet: Regular Addtl Attending Provider Instructions: You have surgical glue called dermabond on your surgical site incisions. You may shower with this on. This will tend to come off within a couple of weeks. Do not pick at it. You may purchase Tylenol and or Ibuprofen over the counter if needed for addition pain control over the next few days. Take per manufacturers instructions, Do not take more than 3 grams of Tylenol in 24 hours. You may ice on and off alternating every 20 minutes as needed to help with pain and swelling over the next few days to your incisions. Pending Studies at Discharge: Yes Studies:: surgical pathology Stand-Alone Forms: My [facility], Work/School Release, Smoking Cessation Medications and DC Order Prescriptions: New oxycodone 5 mg tablet 5 - 10 mg PO .[id number] MDD no more than 6 tabs in 24hours PRN (Reason: pain) Qty: 15 0RF ondansetron 4 mg tablet,disintegrating 4 mg PO Q6H PRN (Reason: nausea and vomiting) 3 Days Qty: 12 0RF Continued cetirizine 10 mg tablet 10 mg PO DAILY fluticasone propionate 44 mcg/actuation HFA aerosol inhaler 1 puff inhalation BID albuterol sulfate 90 mcg/actuation HFA aerosol inhaler 2 inh inhalation Q4H PRN (Reason: shortness of breath or wheezing) Discharge Orders: Discharge Order (Routine); Ordered 09/27/24 Ordered By: Taylor Shepard/Other Patient Handouts: Appendectomy, What Is Appendicitis? Admission Data Admit Date/Time: 09/27/24 05:47 Attending Provider: Sandoval Alvarez Admit Provider: Sandoval Alvraez Primary Care Provider: PCP,NO Other Providers: Sandoval Alvarez Other Interventions: Discharge Summary Assessment (RN) Last Done: 09/27/24 15:03 Supervising Physician Co-Signing Physician Notes I have seen and examined this patient this am. I have also reviewed his imaging. Laparoscopic appendectomy planned for this am. I have explained the details of the surgery to him including the risks and benefits. He expressed understanding of this explanation and all of his questions were answered. Consent has been obtained. Coding Level of Care Code 05553 IN/OBS DISCH 30 MIN/LESS Diagnoses Acute appendicitis K35.209 Acute appendicitis type: with generalized peritonitis Appendicitis abscess presence: unspecified whether abscess present Appendicitis gangrene presence: unspecified whether gangrene present Appendicitis perforation presence: unspecified whether perforation present
[2024-09-27 13:34] VITALS: BP 123/71; TEMP 97.3
[2024-09-27 14:33] VITALS: PULSE 59; RESP 14; O2SAT 97
[2024-09-27 15:27] LABS: iSTAT Creatinine 1.3 mg/dl (0.6-1.3); iSTAT Ionized Calcium 1.18 mmol/l (1.12-1.32); iSTAT Potassium 3.6 mmol/L (3.3-5.0)
== END 2024-09-27 15:26 | disposition home or self-care (01) ==
LOC: ED 03:30 → 3N 03:30